=== PATIENT | female | born 1935 | race Caucasian/White ===

== ENCOUNTER → 2017-12-19 | Outpatient (CLI) | payer MEDICARE, OTHER ==
[~2017-12-19] MED LIST: ASPI81CH; ASPIRIN PO; ATOR20; ATOR20 PO; Anastrozole1 GM; DAILY MULTIPLE1 EACH; FISH1000 PO; GLIP10 PO; GLIP10ER; HYDACE5 PO; HYDCHL25 PO; INS70/30I SC; INSULANPEN; METFORMIN HCL1000 MG; METFORMIN PO; MULTIVITAMIN PO; PROBIOTIC1 EAC1; PROLIA60 MG/1 ML; TORSE20; TRAM50 PO
[2017-12-19 12:54] LABS: Percent Saturation 17.5 % (15.0-50.0)
== END | disposition home or self-care (01) ==
LOC: LAB SHORT 10:14 → LAB 10:14
PROVIDERS: Internal Medicine Hematology & Oncology
DX: D50.9 Iron deficiency anemia, unspecified (principal)
CPT/HCPCS: 83540; 83550

== ENCOUNTER 2020-07-16 05:49 | Day surgery (SDC) | payer MEDICARE, OTHER ==
[~2020-07-16] VITALS: Ht 160 cm; Wt 75.0 kg
[~2020-07-16 05:49] MED LIST changes: +ANASTROZOLE5 GM PO; -ASPI81CH; +ASPI81CH PO; -ATOR20; +Amaryl1 MG; -Anastrozole1 GM; +Aspirin EC325 MG PO; +BASAGLAR K100 UNIT/1; +CHOL10002 PO; -DAILY MULTIPLE1 EACH; +DAILY MULTIPLE1 EACH PO; -GLIP10ER; +GLIP10ER PO; -INSULANPEN; +INSULANPEN SC; +LOSA25 PO; +MAGOXI400 PO; -METFORMIN HCL1000 MG; +METFORMIN HCL1000 MG PO; +Non-Aspirin Ex500 M1 PO; -PROLIA60 MG/1 ML; +PROLIA60 MG/1 ML IM; +ROXICODONE5 MG PO; +SITA50T2 PO; -TORSE20; +TORSE20 PO; +VITAMIN D-32000 UNIT PO
--- NOTE | 2020-07-16 10:27 | NUR ---
TR BAND DEFLATION STARTED, SITE SOFT NON TENDER WITH NO ACTIVE BLEEDING. CALL LIGHT IN REACH. WILL CONTINUE TO MONITOR.
--- NOTE | 2020-07-16 11:30 | NUR ---
PT VERBALIZED UNDERSTANDING OF D/C INSTRUCTIONS. PAPERWORK PROVIDED IN FOLDER. PT ABLE TO GET DRESSED WITH LIMITED ASSISTANCE. TR BAND REMOVED FROM RIGHT WRIST, RED CLOTH DOT DRESSING APPLIED. ARM BOARD REMAINS ON FOR SUPPORT. IV REMOVED FROM LAC WITH CATHETER INTACT, PRESSURE DRESSING APPLIED. CALLED FOR RIDE HOME, PT TAKEN OUT TO PRIVATE VEHICLE WITH NO ACUTE DISTRESS NOTED. ENCOURAGED TO FOLLOW UP WITH PROVIDER. NO ACUTE DISTRESS NOTED. VSS.
== END 2020-07-16 11:30 | disposition home or self-care (01) ==
LOC: MHTC 05:49
DX: I35.0 Nonrheumatic aortic (valve) stenosis (principal); E78.5 Hyperlipidemia, unspecified; E11.9 Type 2 diabetes mellitus without complications; E78.00 Pure hypercholesterolemia, unspecified; C50.919 Malignant neoplasm of unspecified site of unspecified female breast; E11.22 Type 2 diabetes mellitus with diabetic chronic kidney disease; N18.30 Chronic kidney disease, stage 3 unspecified; E11.42 Type 2 diabetes mellitus with diabetic polyneuropathy; D63.1 Anemia in chronic kidney disease; I13.10 Hypertensive heart and chronic kidney disease without heart failure, with stage 1 through stage 4 chronic kidney disease, or unspecified chronic kidney disease; I51.9 Heart disease, unspecified; I45.81 Long QT syndrome; E66.3 Overweight; Z79.82 Long term (current) use of aspirin; Z68.29 Body mass index [BMI] 29.0-29.9, adult; Z79.4 Long term (current) use of insulin; Z88.6 Allergy status to analgesic agent
CPT/HCPCS: 76937; 93454; 99152; 99153; C1769; C1894; J1644; J2250; J3010; J7030; J7040; J7050; Q9967

== ENCOUNTER → 2022-05-10 | Outpatient (CLI) | payer MEDICARE, OTHER ==
[2022-05-10 15:39] LABS: Creatinine, Urine Random 30.9 mg/dL (27.00-270.00); Protein/Creat Ratio, Ur Random 0.4
[2022-05-13 15:08] LABS: M-SPIKE, % Not Observed % (Not Observed); PROTEIN,TOTAL,URINE 6.1 mg/dL (Not Estab.)
== END ==
LOC: LAB 13:36 → LAB SHORT 13:36
PROVIDERS: Internal Medicine Nephrology
DX: N18.4 Chronic kidney disease, stage 4 (severe) (principal)
CPT/HCPCS: 82570; 84156; 84166

== ENCOUNTER → 2022-08-13 | Outpatient (CLI) | payer MEDICARE, OTHER ==
[2022-08-13 18:56] LABS: Creatinine, Urine Random 40.4 mg/dL (27.00-270.00); Protein, Urine Random 14.4 mg/dL (0.0-11.9); Protein/Creat Ratio, Ur Random 0.4
== END ==
LOC: LAB SHORT 15:29 → LAB 15:29
PROVIDERS: Internal Medicine Nephrology
DX: I12.0 Hypertensive chronic kidney disease with stage 5 chronic kidney disease or end stage renal disease (principal); E11.22 Type 2 diabetes mellitus with diabetic chronic kidney disease; N18.6 End stage renal disease
CPT/HCPCS: 82570; 84156

== ENCOUNTER 2022-10-04 14:27 | Inpatient (IN) | payer OTHER, MEDICARE ==
[2022-10-04] VITALS (7 sets, daily range): BP systolic 90–114; BP diastolic 45–65
[~2022-10-04] VITALS: Ht 154.9 cm; Wt 72.3 kg
[~2022-10-04 14:27] MED LIST changes: -Amaryl1 MG; +Amaryl1 MG PO; -BASAGLAR K100 UNIT/1; +SEMGLEE (Y100 UNIT/2 SC
[2022-10-04] MEDS ORDERED: METOPROLOL SUCC25 MG PO (15:06)
[2022-10-04 15:49] LABS: Source, Urine Straight Cath
[2022-10-04 15:54] LABS: Appearance, Urine Clear (Clear); Bilirubin, Urine Neg (Neg); Blood, Urine 1+ (Neg); Glucose Qualitative, Urine Neg (Neg); Ketones, Urine Neg (Neg); Leukocyte Esterase, Urine Neg (Neg); Nitrite, Urine Neg (Neg); Protein, Urine 1+ (Neg); Specific Gravity, Urine 1.015 (1.003-1.022); Urobilinogen, Urine NORM (Normal)
[2022-10-04 16:04] LABS: Color, Urine Pale Yellow (P-Yellow)
[2022-10-04 16:05] LABS: Bacteria Rare /hpf; Hyaline Casts 0-2 /lpf (0-2); Red Blood Cells, Urine 0-2 /hpf (0-2); Squamous Epithelial Cells Rare /hpf (Few); White Blood Cells, Urine 0-2 /hpf (0-5)
[2022-10-04 16:12] LABS: BASOPHILS ABSOLUTE AUTO 0.02 K/mm3 (0.00-0.23); BASOPHILS PERCENT AUTO 0 % (0-2); EOSINOPHILS ABSOLUTE AUTO 0.02 K/mm3 (0.00-0.68); EOSINOPHILS PERCENT AUTO 0 % (0-6); Hematocrit 32.7 % (33.0-51.0); Hemoglobin 10.7 g/dL (11.5-16.0); IMMATURE GRAN ABSOLUTE AUTO 0.05 K/mm3 (0.00-0.10); IMMATURE GRAN PERCENT AUTO 1 % (0-1); LYMPHOCYTES ABSOLUTE AUTO 0.19 K/mm3 (0.84-5.20); LYMPHOCYTES PERCENT AUTO 2 % (21-46); MONOCYTES ABSOLUTE AUTO 0.05 K/mm3 (0.16-1.47); MONOCYTES PERCENT AUTO 1 % (4-13); Mean Corpuscular HGB 30.2 pg (26.0-34.0); Mean Corpuscular HGB Conc 32.7 g/dL (31.5-36.5); Mean Corpuscular Volume 92 fL (80-100); Mean Platelet Volume 10.3 fL (9.1-12.4); NEUTROPHILS PERCENT AUTO 97 % (41-73); Platelet Count 198 K/mm3 (150-400); RDW Coefficient Variation 11.9 % (11.7-14.2); RDW Standard Deviation 40.7 fL (35.1-46.3); Red Blood Cell Count 3.54 M/mm3 (3.80-5.20); White Blood Cell Count 9.63 K/mm3 (4.00-11.30)
[2022-10-04 16:43] LABS: Thyroid Stimulating Hormone 1.68 uIU/mL (0.360-4.800)
[2022-10-04 16:44] LABS: Albumin, Blood 3.6 g/dL (3.4-5.0); Bilirubin, Total 0.5 mg/dL (0.1-1.0); Calcium, Blood 9.5 mg/dL (8.5-10.1); Creatinine, Blood 2.5 mg/dL (0.40-1.00); Globulin, Blood 3.7 g/dL (2.2-4.0); Potassium, Blood 3.6 mmol/L (3.5-5.5); Total Protein, Blood 7.3 g/dL (6.4-8.2)
[2022-10-04 16:48] LABS: Influenza A, PCR NEGATIVE (NEGATIVE); Influenza B, PCR NEGATIVE (NEGATIVE); Resp Syncytial Virus, PCR NEGATIVE (NEGATIVE); SARS-Cov-2 (COVID-19) PCR, MMC NEGATIVE (NEGATIVE)
[2022-10-04 22:35] LABS: Anti-Xa UFH, PHA Monitoring <0.10 IU/mL; International Normalized Ratio 1.12; Prothrombin Time Results 11.7 Sec (9.7-11.5)
[2022-10-05] VITALS (67 sets, daily range): BP systolic 78–160; BP diastolic 33–113
[2022-10-05 06:06] LABS: Adenovirus Not Detected (NOT DETECT); Coronavirus 229E Not Detected (NOT DETECT); Coronavirus HKU1 Not Detected (NOT DETECT); Coronavirus NL63 Not Detected (NOT DETECT); Coronavirus OC43 Not Detected (NOT DETECT); Human Metapneumovirus Not Detected (NOT DETECT); Human Rhinovirus/Enterovirus Not Detected (NOT DETECT); Influenza A/2009-H1 Not Detected (NOT DETECT); Influenza A/H1 Not Detected (NOT DETECT); Influenza A/H3 Not Detected (NOT DETECT); Influenza B Not Detected (NOT DETECT); Parainfluenza Virus 1 Not Detected (NOT DETECT); Parainfluenza Virus 2 Not Detected (NOT DETECT); Parainfluenza Virus 3 Not Detected (NOT DETECT); Parainfluenza Virus 4 Not Detected (NOT DETECT); SARS-Cov-2 (COVID-19), BioFire Not Detected (NOT DETECT)
[2022-10-05 06:07] LABS: Bordetella pertussis Not Detected (NOT DETECT); Chlamydophila pneumoniae Not Detected (NOT DETECT); Mycoplasma pneumoniae Not Detected (NOT DETECT); Respiratory Syncytial Virus Not Detected (NOT DETECT)
[2022-10-05 06:47] LABS: BASOPHILS ABSOLUTE AUTO 0.09 K/mm3 (0.00-0.23); BASOPHILS PERCENT AUTO 0 % (0-2); Hematocrit 27.6 % (33.0-51.0); Hemoglobin 8.9 g/dL (11.5-16.0); LYMPHOCYTES ABSOLUTE AUTO 0.85 K/mm3 (0.84-5.20); LYMPHOCYTES PERCENT AUTO 3 % (21-46); MONOCYTES ABSOLUTE AUTO 1.76 K/mm3 (0.16-1.47); MONOCYTES PERCENT AUTO 7 % (4-13); Mean Corpuscular HGB Conc 32.2 g/dL (31.5-36.5); Mean Corpuscular Volume 93 fL (80-100); Mean Platelet Volume 9.9 fL (9.1-12.4); Platelet Count 168 K/mm3 (150-400); RDW Coefficient Variation 12.3 % (11.7-14.2); RDW Standard Deviation 42.1 fL (35.1-46.3); Red Blood Cell Count 2.97 M/mm3 (3.80-5.20); White Blood Cell Count 26.53 K/mm3 (4.00-11.30)
[2022-10-05 06:48] LABS: EOSINOPHILS ABSOLUTE AUTO 0.01 K/mm3 (0.00-0.68); EOSINOPHILS PERCENT AUTO 0 % (0-6); IMMATURE GRAN ABSOLUTE AUTO 0.48 K/mm3 (0.00-0.10); IMMATURE GRAN PERCENT AUTO 2 % (0-1); NEUTROPHILS ABSOLUTE AUTO 23.34 K/mm3 (1.96-9.15); NEUTROPHILS PERCENT AUTO 88 % (41-73)
[2022-10-05 07:03] LABS: Albumin, Blood 2.9 g/dL (3.4-5.0); Albumin/Globulin Ratio 0.8 (0.8-1.8); Bilirubin, Total 0.5 mg/dL (0.1-1.0); Bun/Creatinine Ratio 20.9 (12.0-20.0); Calcium, Blood 8.2 mg/dL (8.5-10.1); Creatinine, Blood 2.78 mg/dL (0.40-1.00); Globulin, Blood 3.6 g/dL (2.2-4.0); Potassium, Blood 4.6 mmol/L (3.5-5.5); Total Protein, Blood 6.5 g/dL (6.4-8.2)
--- NOTE | 2022-10-05 07:25 | NUR ---
SHIFT SUMMARY ASSUMED CARE OF PATIENT TRANSFER FROM FLOOR. ALERT AND ORIENTED X3-4; SOMETIMES BELIEVES SHE IS AT A HOSPITAL IN [place] VS [place]. GRADY. FOLLOWS COMMANDS. HYPOTENSIVE; DR QUINTANILLA NOTIFIED. ORDERED INCREASE IN MAINTENANCE FLUIDS AND START LOW DOSE LEVOPHED. MONITOR SHOWING SR C 1ST DEGREE AVB, HR 70-80S. AFEBRILE. ROOM AIR WHILE AWAKE; 3L NC WHILE ASLEEP. DENIES SHORTNESS OF BREATH. HEPARIN GTT STARTED AFTER CONFIRMATION WITH DR QUINTANILLA THATCT HEAD NEGATIVE. NO FURTHER CONCERNS.
--- NOTE | 2022-10-05 08:00 | NUR ---
INITIAL ASSESSMENT PATIENT ALERT AND ORIENTED X 4. CALM, PLEASANT, COOPERATIVE. TEMP OF 100.4 DEGREES FAHRENHEIT. PATIENT DENIES ANY PAIN. PATIENT STATES AT HOME SHE USES WALKER BECAUSE SHE IS UNSTEADY ON HER FEET. PATIENT ON RA WHILE AWAKE AND ON 3 TO 6 L NC WITH SLEEP TO KEEP SATS 90% AND GREATER. FINE CRACKLES NOTED IN RLL. SINUS WITH FIRST DEGREE BLOCK, HR IN THE 70S. PATIENT ON LEVOPHED AT 6 MCG/ MINUTE TO KEEP MAPS 65 AND GREATER. GI WNL. ATTENDS IN PLACE FOR OCCASIONAL URINARY DRIBBLING. SKIN APPEARS WNL. NS INFUSING AT 150 MLS/ HOUR. HEPARIN DRIP OFF AT THIS TIME. BED LOW, CALL LIGHT IN REACH. WILL CONTINUE TO MONITOR PATIENT FREQUENTLY THROUGHOUT SHIFT.
--- NOTE | 2022-10-05 10:05 | NUR ---
DR. DORANTES TO ROOM TO SEE PATIENT. INFORMED THAT PATIENT HAS NOT VOIDED SINCE COMING TO ICU AROUND MIDNIGHT. INFORMED THAT BLADDER SCAN PERFORMED AND 596 MLS OF URINE SHOWN IN BLADDER. INFORMED THAT PATIENT STATES SHE TAKES TORSEMIDE AT HOME PRN. INFORMED THAT PATIENT UP TO 6 L NC WHILE SLEEPING TO KEEP SATS 90% AND GREATER. INFORMED THAT LEVOPHED DRIP UP TO 6 MCG/ MINUTE FROM 4 MCG/ MINUTE THIS AM. INFORMED THAT DIASTOLIC BPS LOW. ORDERS RECEIVED.
[2022-10-05 11:48] LABS: Source, Urine Foley catheter
[2022-10-05 11:57] LABS: Appearance, Urine Clear (Clear); Bilirubin, Urine Neg (Neg); Blood, Urine Neg (Neg); Color, Urine Yellow (P-Yellow); Glucose Qualitative, Urine Neg (Neg); Ketones, Urine Neg (Neg); Leukocyte Esterase, Urine Neg (Neg); Nitrite, Urine Neg (Neg); Protein, Urine 2+ (Neg); Specific Gravity, Urine 1.015 (1.003-1.022); Urobilinogen, Urine NORM (Normal)
--- NOTE | 2022-10-05 12:00 | NUR ---
PATIENT TEMP 99.7 DEGREES FAHRENHEIT. PATIENT DENIES PAIN. HR REMAINS IN 70S. LEVOPHED AT 6 MCG/ MINUTE. BLOOD SUGAR 201; COVERAGE ADMINISTERED. LERMA IN PLACE FOR RETENTION. NO OTHER ACUTE CHANGES TO NOTE ON AT THIS TIME. WILL CONTINUE TO MONITOR.
[2022-10-05 12:15] LABS: Bacteria Not Seen /hpf; Red Blood Cells, Urine Not Seen /hpf (0-2); Squamous Epithelial Cells Rare /hpf (Few); White Blood Cells, Urine Not Seen /hpf (0-5)
--- NOTE | 2022-10-05 15:01 | NUR ---
Spoke with Pt's Primary RN Yesenia prior to visiting with Pt and discussed case. Pt may benefit from just a supportive visit for now. Pt resting in bed and is A&OX4. Pt denies pain, anxiety, and nausea. Pt does confirm mild to moderate dyspnea at this time. Brief review of plan of care. Pt does report not remembering coming to the hospital. Pt reports living at home with her spouse and has been for 25 years. She reports both her and her spouse have children from previous marriages. Pt reports her children live local and are very supportive of her needs. She reports using a walker at home but is independent of her ADLs. Continued supportive visit. Pt agreeable for continued visits from Palliative Care. Palliative Care will F/U Pt to discuss code status and advanced care planning.
--- NOTE | 2022-10-05 16:00 | NUR ---
PATIENT HAS TEMP OF 99.1 DEGREES FAHRENHEIT. PATIENT DENIES PAIN. HR IN THE 70S. LEVOPHED ON SB AND MAPS REMAIN 65 OR GREATER. HEPARIN DRIP OFF. SQ HEPARIN ORDERED BY AND ADMINISTERED. NO OTHER ACUTE CHANGES TO NOTE ON AT THIS TIME. WILL CONTINUE TO MONITOR.
--- NOTE | 2022-10-05 18:15 | NUR ---
SHIFT SUMMARY PATIENT REMAINED ALERT AND ORIENTED X 4 THIS SHIFT. PATIENT HAD TMAX OF 100.4 DEGREES FAHRENHEIT THIS SHIFT. PATIENT HAD NO COMPLAINTS OF PAIN. PATIENT ASSISTED WITH TURNS. PATIENT REMAINED ON 3 TO 6 L NC WHILE SLEEPING TO KEEP SATS 90% AND GREATER. PATIENT REMAINED IN SINUS WITH FIRST DEGREE BLOCK. HR 60S TO 80S. PATIENT ON LEVOPHED AT 4 MCG/ MINUTE THIS AM. LEVOPHED INCREASED TO MAX OF 8 MCG/ MINUTE THIS SHIFT. LEVOPHED HAS NOW BEEN OFF FOR SEVERAL HOURS AND MAPS REMAIN 65 AND GREATER. GI WNL. GOOD APPETITE. NO BM THIS SHIFT. LERMA INSERTED FOR RETENTION; 950 MLS OF YELLOW URINE OUT THIS SHIFT. SKIN REMAINS WNL. PATIENT HAS BEEN REPOSITIONED Q2H. HEPARIN DRIP DC'D THIS SHIFT. SQ HEPARIN STARTED THIS SHIFT. NS TO TKO FROM 150 MLS/ HOUR. LACTIC DECREASED FROM 2.4 TO 1. PICC PLACED THIS SHIFT. PATIENT REFUSED BEDBATH. VQ SCAN AND CT TO CHEST/ ABD/ PELVIS PERFORMED THIS SHIFT. BLOOD SUGARS 97, 201 AND 121 THIS SHIFT. PATIENT RESTING IN BED WITH NO COMPLAINTS AT THIS TIME. BED LOW, CALL LIGHT IN REACH. REPORT WILL BE GIVEN TO ASSUMING HEAD IRRIGATOR NURSE SHORTLY.
--- NOTE | 2022-10-05 20:00 | NUR ---
ASSUMPTION OF CARE AT START OF SHIFT, PATIENT A/O X3; UNABLE TO STATE YEAR, BUT ABLE TO STATE CURRENT PRESIDENT. CALM, COOPERATIVE; VISITING WITH AT BEDSIDE. 3L NC; PATIENT ENDORSING DYSPNEA ON EXERTION. MONITOR SHOWING SR C 1AVB. LEVO ON STANDBY, MAP >65. LERMA CATH TO DEPENDENT DRAINAGE. REPOSITIONED. CALL LIGHT WITHIN REACH.
[2022-10-06] VITALS (20 sets, daily range): BP systolic 92–155; BP diastolic 45–81
[2022-10-06 04:52] LABS: BASOPHILS ABSOLUTE AUTO 0.05 K/mm3 (0.00-0.23); BASOPHILS PERCENT AUTO 0 % (0-2); EOSINOPHILS ABSOLUTE AUTO 0.21 K/mm3 (0.00-0.68); EOSINOPHILS PERCENT AUTO 1 % (0-6); Hematocrit 25.7 % (33.0-51.0); Hemoglobin 8.2 g/dL (11.5-16.0); IMMATURE GRAN ABSOLUTE AUTO 0.33 K/mm3 (0.00-0.10); IMMATURE GRAN PERCENT AUTO 2 % (0-1); LYMPHOCYTES ABSOLUTE AUTO 0.78 K/mm3 (0.84-5.20); LYMPHOCYTES PERCENT AUTO 5 % (21-46); MONOCYTES ABSOLUTE AUTO 1.08 K/mm3 (0.16-1.47); MONOCYTES PERCENT AUTO 7 % (4-13); Mean Corpuscular HGB 30.1 pg (26.0-34.0); Mean Corpuscular HGB Conc 31.9 g/dL (31.5-36.5); Mean Corpuscular Volume 95 fL (80-100); Mean Platelet Volume 10.6 fL (9.1-12.4); NEUTROPHILS PERCENT AUTO 85 % (41-73); Platelet Count 150 K/mm3 (150-400); RDW Coefficient Variation 12.4 % (11.7-14.2); Red Blood Cell Count 2.72 M/mm3 (3.80-5.20); White Blood Cell Count 16.25 K/mm3 (4.00-11.30)
[2022-10-06 05:14] LABS: Albumin, Blood 2.6 g/dL (3.4-5.0); Albumin/Globulin Ratio 0.8 (0.8-1.8); Bilirubin, Total 0.5 mg/dL (0.1-1.0); Bun/Creatinine Ratio 21.3 (12.0-20.0); Calcium, Blood 8.2 mg/dL (8.5-10.1); Creatinine, Blood 2.68 mg/dL (0.40-1.00); Globulin, Blood 3.4 g/dL (2.2-4.0); Potassium, Blood 3.8 mmol/L (3.5-5.5)
--- NOTE | 2022-10-06 06:33 | NUR ---
SHIFT SUMMARY OVERNIGHT, PATIENT REMAINED A/O X3. MONITOR SHOWING SR C 1AVB, HR 70-100S. NORMOTENSIVE. TMAX 101.7F PER TEMP LERMA. RECEIVED X1 DOSE OF TYLENOL. DR MORAES NOTIFIED OF NEW POSITIVE BLOOD CULTURE RESULT. PATIENT INCREASINGLY DYSPNIC, AUDIBLY WHEEZY WITH CRACKLES TO RIGHT LUNG; ASSOCIATED WITH INCREASE O2 REQUIREMENT. DR MORAES NOTIFIED, X1 LASIX ORDERED AND ADMINISTERED WITH IMPROVEMENT IN SOB AND ABLE TO WEAN O2 BACK DOWN. TOLERATING PO INTAKE. NO BM OVERNIGHT. LERMA CATHETER IN PLACE; 325CC URINE PRIOR TO LASIX ADMINISTRATION AND 1200CC FOLLOWING LASIX. CARE ONGOING.
--- NOTE | 2022-10-06 08:00 | NUR ---
INITIAL ASSESSMENT PATIENT ALERT AND ORIENTED X 4, PLEASANT AND COOPERATIVE. PATIENT DENIES PAIN. PATIENT HAS CORE TEMP OF 100.4 DEGREES FAHRENHEIT. PATIENT HAS FINE CRACKLES NOTED IN R LOWER LUNG LOBE. PATIENT ON 3 L NC WHILE EATING AND WITH SLEEP TO KEEP SATS ABOVE 90% AND GREATER. PATIENT SOB WITH EXERTION. PATIENT IN SINUS RHYTHM WITH FIRST DEGREE BLOCK, HR IN THE 80S. SBP IN THE 120S. GI WNL. NO BM SINCE ADMITTED. LERMA IN PLACE FOR RETENTION; DRAINING YELLOW COLORED URINE. SKIN WNL. BED LOW, CALL LIGHT IN REACH. WILL CONTINUE TO MONITOR PATIENT FREQUENTLY THROUGHOUT SHIFT.
--- NOTE | 2022-10-06 10:30 | NUR ---
DR. DORANTES HERE TO SEE PATIENT. INFORMED THAT BLOOD POSITIVE FOR GRAM + BACILLI. INFORMED THAT WBC DECREASED TODAY. INFORMED THAT PATIENT HAD TMAX OF 101.7 DEGREES FAHRENHEIT ON TRENCH DIGGING MACHINE OPERATOR AND TYLENOL GIVEN. INFORMED THAT TEMP 100.4 DEGREES FAHRENHEIT THIS AM. INFORMED THAT PATIENT HAD FLUID OVERLOAD/ DYSPNEA PROBLEM AROUND 2300 LAST NIGHT PER TRENCH DIGGING MACHINE OPERATOR NURSE REPORT. PATIENT GIVEN OT LASIX, PUT OUT 1200 MLS AFTER LASIX GIVEN AND THAT BREATHING IMPROVED. INFORMED THAT PATIENT NOW NEEDING O2 WHILE EATING DESATTED DOWN TO HIGH 70S DURING BREAKFAST ON RA. INFORMED THAT PATIENT DOES HAVE SOME WHEEZING ON AND OFF; NO HISTORY OF COPD. ORDERS RECEIVED.
--- NOTE | 2022-10-06 12:05 | NUR ---
PATIENT HAS TEMP OF 100.7 DEGREES FAHRENHEIT. HR IN THE 70S. SBP IN THE 1-TEENS. BLOOD SUGAR 122; COVERAGE NOT INDICATED. NO OTHER ACUTE CHANGES TO NOTE ON AT THIS TIME. WILL CONTINUE TO MONITOR.
--- NOTE | 2022-10-06 16:28 | NUR ---
Pt resting in chair upon arrival. Wearing O2 via NC. Pt denies pain and anxiety at this time. Pt confirms having dyspnea and speaks in 2-3 word sentences. Reviewed plan of care with Pt. Engaged in therapeutic discussion regarding code status wishes. Educated on life sustaining treatments including risks and implications of CPR/Intubation. Pt states here wishes are DNR and reports having a POLST that reflects these wishes. Requested that she or family bring in a copy at their convience for her EMR for the hopital. Offered supportive visit and therapeutic listening. Pt reports no concerns at this time. Spoke with Dr Valencia and discussed case. Placed DNR order in [facility] per V/O from Dr Valencia. Palliative Care will remain available
--- NOTE | 2022-10-06 16:30 | NUR ---
PATIENT HAS TEMP OF 100.7 DEGREES FAHRENHEIT. HR IN THE 80S. SBP 130S TO 140S. PATIENT ON 3 TO 6 L NC WHILE SLEEPING TO KEEP SATS 90% AND GREATER. BLOOD SUGAR 122; NO COVERAGE INDICATED. NO OTHER ACUTE CHANGES AT THIS TIME. WILL CONTINUE TO MONITOR.
--- NOTE | 2022-10-06 19:14 | NUR ---
SHIFT SUMMARY PATIENT REMAINED ALERT AND ORIENTED X 4. PATIENT HAD TMAX OF 101.0 DEGREES FAHRENHEIT. BLOOD CULTURES OBTAINED END OF SHIFT. NO COMPLAINTS OF PAIN. PT AND OT WORKED WITH PATIENT; PATIENT UP TO CHAIR FOR SEVERAL HOURS TODAY. PATIENT 1 PERSON ASSIST WITH FWW. PATIENT REMAINED NEEDING 3 TO 6 L NC FOR SLEEP AND 3 L NC WHILE EATING THIS SHIFT TO KEEP SATS 90% AND GREATER. PATIENT SOB WITH EXERTION. PATIENT REMAINED IN SINUS RHYTHM WITH FIRST DEGREE BLOCK, HR 60S TO 90S. SBP LOW 100S TO 150S. OKAY APPETITE; PATIENT NOT IMPRESSED WITH FOOD BUT IS NICE ABOUT IT. NO BM THIS SHIFT. LERMA DRAINED 1850 MLS OF YELLOW COLORED URINE. PATIENT RECEIVED 40 MG LASIX IV THIS SHIFT. NO CHANGES TO SKIN NOTED. PATIENT HELPED WITH REPOSITIONING. COMPLETE BED BATH PERFORMED. NO COVERAGE NEEDED FOR BLOOD SUGARS. PATIENT HAS NO COMPLAINTS AT THIS TIME. REPORT GIVEN TO ASSUMING HOGSHEAD HEAD MATCHER NURSE.
--- NOTE | 2022-10-06 20:48 | NUR ---
ASSUMED CARE PT IS A&O X4; PLEASANT. SPO2 >92% ON 6L NC; MAP >65; HR IN THE 70'S. FAMILY AT BEDSIDE. NO C/O OF CP, INCREASED SOB, NAUSEA, NUMBNESS, OR TINGLING. PT STATES THAT SHE "FEELS A LOT BETTER THAN YESTERDAY". LERMA CATHETER PATENT AND DRAINING TO GRAVITY.
--- NOTE | 2022-10-06 21:25 | NUR ---
UPDATE PT MOVED TO PCU 13 W/ NO ISSUES. BELONGINGS/MEDICATIONS W/ PT. REPORT TO BE GIVEN TO NURSE WHEN SHE ARRIVES ON UNIT.
--- NOTE | 2022-10-06 22:30 | NUR ---
ASSUMED CARE PATIENT IN BED SLEEPING. NO FAMILY AT BEDSIDE. EASILY AROUSABLE WITH VERBAL STIMULATION. PATIENT IS A&O X3, NOT ABLE TO REMEBER MONTH/YEAR. PATIENT DENIES PAIN AND SOB. ON 3-6L PR. LERMA IN PLACE TO GRAVITY. CALL LIGHT WITHIN REACH
[2022-10-07 00:11] VITALS: BP 144/61
[2022-10-07 04:06] VITALS: BP 131/58
[2022-10-07 04:18] LABS: BASOPHILS ABSOLUTE AUTO 0.04 K/mm3 (0.00-0.23); BASOPHILS PERCENT AUTO 0 % (0-2); EOSINOPHILS PERCENT AUTO 3 % (0-6); Hematocrit 24.4 % (33.0-51.0); Hemoglobin 7.7 g/dL (11.5-16.0); IMMATURE GRAN ABSOLUTE AUTO 0.22 K/mm3 (0.00-0.10); IMMATURE GRAN PERCENT AUTO 2 % (0-1); LYMPHOCYTES ABSOLUTE AUTO 1.09 K/mm3 (0.84-5.20); LYMPHOCYTES PERCENT AUTO 9 % (21-46); MONOCYTES PERCENT AUTO 7 % (4-13); Mean Corpuscular HGB 29.3 pg (26.0-34.0); Mean Corpuscular HGB Conc 31.6 g/dL (31.5-36.5); Mean Corpuscular Volume 93 fL (80-100); Mean Platelet Volume 10.4 fL (9.1-12.4); NEUTROPHILS ABSOLUTE AUTO 9.54 K/mm3 (1.96-9.15); NEUTROPHILS PERCENT AUTO 79 % (41-73); Platelet Count 152 K/mm3 (150-400); RDW Coefficient Variation 12.3 % (11.7-14.2); RDW Standard Deviation 42.1 fL (35.1-46.3); Red Blood Cell Count 2.63 M/mm3 (3.80-5.20); White Blood Cell Count 12.09 K/mm3 (4.00-11.30)
[2022-10-07 04:39] LABS: Albumin, Blood 2.5 g/dL (3.4-5.0); Albumin/Globulin Ratio 0.7 (0.8-1.8); Bilirubin, Total 0.4 mg/dL (0.1-1.0); Bun/Creatinine Ratio 19.3 (12.0-20.0); Calcium, Blood 8.5 mg/dL (8.5-10.1); Creatinine, Blood 2.59 mg/dL (0.40-1.00); Globulin, Blood 3.5 g/dL (2.2-4.0); Potassium, Blood 3.4 mmol/L (3.5-5.5)
[2022-10-07 07:58] VITALS: BP 135/59
[2022-10-07 12:37] VITALS: BP 125/57
--- NOTE | 2022-10-07 14:32 | NUR ---
TRANSFER PCU TO [facility] PT HAS HAD NO ACUTE CHANGES THIS SHIFT, VITAL SIGNS ARE STABLE. STATUS HAS BEEN UPDATED TO MEDICAL FROM PCU. THIS STUDENT NURSE CALLED AND GAVE REPORT TO MIRIAN ON THE MEDICAL FLOOR. PT IS ALERT AND ORIENTED X3, EATING AND DRINKING WELL, LERMA CATHETER IN PLACE DRAINING TO GRAVITY. PLAN TO TRANSFER VIA WHEELCHAIR.
[2022-10-07 15:00] VITALS: BP 157/62
--- NOTE | 2022-10-07 17:48 | NUR ---
SHIFT SUMMARY: JUSTICE JI TRANSFERRED THIS AFTERNOON FROM [id number] TO ROOM 308. SHE IS A&O X 3, ABLE TO MAKE NEEDS KNOWN. SHE WAS FAMILIARIZED TO HER ROOM AND STAFF WHICH SHE WAS AGREEABLE. SHE IS ABLE TO USE THE CALL LIGHT, BED AND TV. LN ASSUMED CARE FOR JUSTICE JI FOLLOWING RECEIVING REPORT AND AGREEING WITH REPORT. FORESEMIDE WAS DC'D THIS AFTERNOON AND NEW ORDER TO REASSES FOR LERMA NEED AFTER 8 HOURS. SHE IS CURRENTLY USING A WALKER IN HER ROOM FOR MOBILITY WITH 1 ASSIST. SHE REPORTS THAT SHE IS FEELING BETTER AND READY TO GO HOME. CALL LIGHT AND PHONE WITHIN REACH.
[2022-10-07 20:17] VITALS: BP 151/61
[2022-10-08 05:15] VITALS: BP 132/61
[2022-10-08 05:39] LABS: BASOPHILS ABSOLUTE AUTO 0.05 K/mm3 (0.00-0.23); BASOPHILS PERCENT AUTO 1 % (0-2); EOSINOPHILS ABSOLUTE AUTO 0.47 K/mm3 (0.00-0.68); EOSINOPHILS PERCENT AUTO 5 % (0-6); Hematocrit 25.3 % (33.0-51.0); Hemoglobin 8.4 g/dL (11.5-16.0); IMMATURE GRAN ABSOLUTE AUTO 0.12 K/mm3 (0.00-0.10); IMMATURE GRAN PERCENT AUTO 1 % (0-1); LYMPHOCYTES ABSOLUTE AUTO 1.45 K/mm3 (0.84-5.20); LYMPHOCYTES PERCENT AUTO 15 % (21-46); MONOCYTES ABSOLUTE AUTO 0.81 K/mm3 (0.16-1.47); MONOCYTES PERCENT AUTO 8 % (4-13); Mean Corpuscular HGB 30.1 pg (26.0-34.0); Mean Corpuscular HGB Conc 33.2 g/dL (31.5-36.5); Mean Corpuscular Volume 91 fL (80-100); Mean Platelet Volume 10.3 fL (9.1-12.4); NEUTROPHILS ABSOLUTE AUTO 6.94 K/mm3 (1.96-9.15); NEUTROPHILS PERCENT AUTO 71 % (41-73); Platelet Count 179 K/mm3 (150-400); RDW Coefficient Variation 12.2 % (11.7-14.2); RDW Standard Deviation 40.1 fL (35.1-46.3); Red Blood Cell Count 2.79 M/mm3 (3.80-5.20); White Blood Cell Count 9.84 K/mm3 (4.00-11.30)
[2022-10-08 05:55] LABS: Albumin, Blood 2.5 g/dL (3.4-5.0); Albumin/Globulin Ratio 0.6 (0.8-1.8); Bilirubin, Total 0.2 mg/dL (0.1-1.0); Bun/Creatinine Ratio 22.4 (12.0-20.0); Calcium, Blood 8.8 mg/dL (8.5-10.1); Creatinine, Blood 2.54 mg/dL (0.40-1.00); Globulin, Blood 4.1 g/dL (2.2-4.0); Potassium, Blood 3.6 mmol/L (3.5-5.5); Total Protein, Blood 6.6 g/dL (6.4-8.2)
--- NOTE | 2022-10-08 06:27 | NUR ---
VSS, AO, PLEASANT, PATIENT REPORTS SHE FEELS SHE IS IMPROVING. POSITIVE BLOOD CULTURE THIS MORNING. DID NOT ATTEMPT TO GET OUT OF BED. NO EVENTS OVER NIGHT. O2 ON NEEDED PER PATIENT.
[2022-10-08 07:09] VITALS: BP 140/55
[2022-10-08 15:08] VITALS: BP 121/55
--- NOTE | 2022-10-08 19:21 | NUR ---
SHIFT SUMMARY A&O X 4. VSS. ON 2 L O2 VIA N/C. RECEIVED CALL FROM MD REQUESTING O2 BE REMOVED FROM PT TO DETERMINE IF SHE CAN PAIGE BEING OFF OF O2. PT PLACED ON RA, O2 SATS 97-100%. ENC C/DB AND TO USE THE INCENTIVE SPIROMETER AT BEDSIDE. PLACED CALL TO MD TO INFORM THAT PT IS PAIGE BEING OFF OF O2. PT SAT UP IN CHAIR MOST OF THE AFTERNOON. F/C REMOVED THIS AM. PT WAS ABLE TO URINATE ON HER OWN. IS 1 ASSIST WITH FWW & GB FOR RESTROOM USE. IS PLEASANT & COOPERATIVE WITH ALL CARE. POSSIBLE DC HOME TOMORROW.
[2022-10-08 20:38] VITALS: BP 153/62
[2022-10-09 04:13] VITALS: BP 148/50
[2022-10-09 04:14] VITALS: BP 148/50
--- NOTE | 2022-10-09 05:27 | NUR ---
PATIENT REMAINS ORIENTED X4, COOPERATIVE WITH CARE, STAND BY WITH FWW AND BRP. ON RA, VSS, URINATING WITHOUT ISSUES POST FC REMOVAL, AND RECEIVING IV ANTIBIOTICS VIA PICC WHICH SHE WILL DC WITH TO COMPLETE IV THERAPY. NO ACUTE CHANGES TO REPORT.
[2022-10-09 06:20] LABS: BASOPHILS ABSOLUTE AUTO 0.05 K/mm3 (0.00-0.23); BASOPHILS PERCENT AUTO 1 % (0-2); EOSINOPHILS ABSOLUTE AUTO 0.35 K/mm3 (0.00-0.68); EOSINOPHILS PERCENT AUTO 4 % (0-6); Hematocrit 25.9 % (33.0-51.0); Hemoglobin 8.4 g/dL (11.5-16.0); IMMATURE GRAN ABSOLUTE AUTO 0.24 K/mm3 (0.00-0.10); IMMATURE GRAN PERCENT AUTO 3 % (0-1); LYMPHOCYTES ABSOLUTE AUTO 1.61 K/mm3 (0.84-5.20); LYMPHOCYTES PERCENT AUTO 18 % (21-46); MONOCYTES ABSOLUTE AUTO 0.76 K/mm3 (0.16-1.47); MONOCYTES PERCENT AUTO 9 % (4-13); Mean Corpuscular HGB 29.7 pg (26.0-34.0); Mean Corpuscular HGB Conc 32.4 g/dL (31.5-36.5); Mean Corpuscular Volume 92 fL (80-100); Mean Platelet Volume 10.2 fL (9.1-12.4); NEUTROPHILS ABSOLUTE AUTO 5.98 K/mm3 (1.96-9.15); NEUTROPHILS PERCENT AUTO 66 % (41-73); Platelet Count 196 K/mm3 (150-400); RDW Standard Deviation 40.6 fL (35.1-46.3); Red Blood Cell Count 2.83 M/mm3 (3.80-5.20); White Blood Cell Count 8.99 K/mm3 (4.00-11.30)
[2022-10-09 06:55] LABS: Albumin, Blood 2.5 g/dL (3.4-5.0); Albumin/Globulin Ratio 0.7 (0.8-1.8); Bilirubin, Total 0.3 mg/dL (0.1-1.0); Bun/Creatinine Ratio 22.6 (12.0-20.0); Calcium, Blood 9.3 mg/dL (8.5-10.1); Creatinine, Blood 2.39 mg/dL (0.40-1.00); Globulin, Blood 3.8 g/dL (2.2-4.0); Potassium, Blood 3.8 mmol/L (3.5-5.5); Total Protein, Blood 6.3 g/dL (6.4-8.2)
[2022-10-09 07:22] VITALS: BP 142/57
--- NOTE | 2022-10-09 09:54 | NUR ---
DR NOTIFICATION DR DANIEL NOTIFIED PATIENT WITH SHORTNESS OF BREAT AND LIGHTHEADEDNESS. DIMINISHED BILATERAL BASES, WITH CRACKLES TO RIGHT LUNG. BP 117/54 AND O2 SAT 87% ON ROOM AIR HR 91, PATIENT PLACED ON 1.5 L O2 NC AND O2 INCREASED TO 96% AND SHORTNESS OF BREATH DECREASED, STILL LIGHTHEADED. RECHECK OF BP 131/51. COZAAR AND METOPROLOL NOT YET GIVE. ORDER TO RECHCECK BP IN 1 HOUR TO ASSESS NEED FOR METOPROLOL AND COZARR. DR WILL ROUND SHORTLY.
[2022-10-09 10:48] VITALS: BP 137/60
[2022-10-09 14:45] VITALS: BP 136/62
--- NOTE | 2022-10-09 17:19 | NUR ---
SHIFT SUMMARY PATIENT BLOOD PRESSURE HAS INCREASED FROM LOW SYSTOLIC TODAY, DENIES ANY SHORTNESS OF BREATH AT THIS TIME ON 1.5LPM. STILL FOGGY HEADED BUT NOT DIZZY OR LIGHTHEADED. WILL CONTINUE TO MONITOR.
--- NOTE | 2022-10-09 17:32 | NUR ---
THIS VISITING HOUSEKEEPER HAS REVIEWED ALL NOTES AND ASSESSMENTS BY RN SEPTEMBER AND AGREES WITH THEM.
[2022-10-09 19:22] VITALS: BP 125/58
[2022-10-10 02:33] VITALS: BP 157/67
--- NOTE | 2022-10-10 05:22 | NUR ---
PATIENT REMAINS ALERT AND ORIENTED, COOPERATIVE WITH CARE. HTN BUT OTHERWISE VSS, 1.5L VIA NC, 1X ASSIST WITH FWW AND GAIT BELT, NO REORTS OF DIZZINESS WITH AMBULATION. BS ARE NOW HYPOACTIVE AND PATIENT REPORTS CONSTIPATION, SUPPOSITORY AND PRUNE JUICE ADMINISTERED. A FEW TRIPS THE THE RESTROOM WITH NO RESULTS. NO OTHER ISSUES TO REPORT. WILL CONT TO MONITOR.
[2022-10-10 08:30] VITALS: BP 144/66
[2022-10-10 08:33] VITALS: BP 168/70
[2022-10-10 14:50] VITALS: BP 136/52
[2022-10-10] MEDS ORDERED: Acetaminophen650 M1 PO (15:48)
[2022-10-10] MEDS ORDERED: LEVOFLOXACIN750 MG PO (15:50)
--- NOTE | 2022-10-10 17:46 | NUR ---
DISCHARGED 1700, PATIENT, SON, AND SPOUSE, STATED UNDERSTANDING OF DISCHARGE INSTRUCTIONS/NEEDS/FOLLOW UP
== END 2022-10-10 16:50 | disposition home or self-care (01) | DRG 871 ==
LOC: ER 14:27 → MEDS 18:43 → ICUW 18:43 → MEDS 20:49 → ICUW 22:15 → MEDS 10-05 12:31 → ICUW 10-05 12:35 → PCU 10-06 21:23 → MEDS 10-07 15:34
PROVIDERS: Emergency Medicine; Internal Medicine; ADMIT Internal Medicine
PROC: 3E03329 Introduction of Other Anti-infective into Peripheral Vein, Percutaneous Approach (ICD-10-PCS; principal; 2022-10-07)
PROC: 02HV33Z Insertion of Infusion Device into Superior Vena Cava, Percutaneous Approach (ICD-10-PCS; 2022-10-07)
PROC: 3E033XZ Introduction of Vasopressor into Peripheral Vein, Percutaneous Approach (ICD-10-PCS; 2022-10-07)
DX: A41.51 Sepsis due to Escherichia coli [E. coli] (principal); G92.9 Unspecified toxic encephalopathy; J18.9 Pneumonia, unspecified organism; J96.01 Acute respiratory failure with hypoxia; R65.21 Severe sepsis with septic shock; N18.4 Chronic kidney disease, stage 4 (severe); N17.9 Acute kidney failure, unspecified; Z68.1 Body mass index [BMI] 19.9 or less, adult; Z20.822 Contact with and (suspected) exposure to COVID-19; E11.22 Type 2 diabetes mellitus with diabetic chronic kidney disease; E11.319 Type 2 diabetes mellitus with unspecified diabetic retinopathy without macular edema; I35.0 Nonrheumatic aortic (valve) stenosis; R79.89 Other specified abnormal findings of blood chemistry; I45.10 Unspecified right bundle-branch block; E87.70 Fluid overload, unspecified; I12.9 Hypertensive chronic kidney disease with stage 1 through stage 4 chronic kidney disease, or unspecified chronic kidney disease; E66.01 Morbid (severe) obesity due to excess calories; K76.0 Fatty (change of) liver, not elsewhere classified; E78.00 Pure hypercholesterolemia, unspecified; D50.9 Iron deficiency anemia, unspecified; D63.1 Anemia in chronic kidney disease; M81.0 Age-related osteoporosis without current pathological fracture; Z85.3 Personal history of malignant neoplasm of breast; Z99.81 Dependence on supplemental oxygen; Z98.890 Other specified postprocedural states; Z88.5 Allergy status to narcotic agent; Z98.42 Cataract extraction status, left eye; Z79.4 Long term (current) use of insulin; Z79.82 Long term (current) use of aspirin; Z98.41 Cataract extraction status, right eye; Z90.11 Acquired absence of right breast and nipple; Z79.899 Other long term (current) drug therapy; W01.198A Fall on same level from slipping, tripping and stumbling with subsequent striking against other object, initial encounter; Y92.009 Unspecified place in unspecified non-institutional (private) residence as the place of occurrence of the external cause
CPT/HCPCS: 0202U; 0241U; 36415; 51701; 51702; 70450; 71045; 71250; 74176; 76705; 78580; 80053; 81001; 82570; 82947; 83605; 84145; 84300; 84443; 84484; 84540; 85025; 85379; 85520; 85610; 85730; 87040; 87077; 87086; 87186; 93005; 93010; 94760; 94762; 96360-59; 96361-59; 96365; 96375; 96376; 97112; 97116; 97162; 97166; 97530; 97535; 99285-25; A9270; A9540; C1751; G0378; J0696; J1644; J1815; J1940; J2543; J7030; J7060; J7120